=== PATIENT | male | born 1935 | race Native Hawaiian/Other Pacific Islander ===

== ENCOUNTER 2019-02-19 18:30 | Observation (INO) | payer MEDICARE, OTHER ==
[2019-02-19 18:30] VITALS: BMI 21.2
--- NOTE | 2019-02-19 19:32 | C.PDOC ---
History Of Present Illness 84 year old male with PMHx of HTN, Colon CA on 2014 presents to the ED c/o cough and SOB that started approximately one hour ago. Patient reports he woke up from bed and started coughing and feeling SOB. Patient states feeling come chest discomfort when coughing. Patient denies fever, chills, headache, palpitations, nausea, vomit, abdominal pain, rash, weakness, numbness, recent travel. Time Seen by Provider: 02/19/19 19:18 Chief Complaint (Nursing): Shortness Of Breath History Per: Patient History/Exam Limitations: no limitations Onset/Duration Of Symptoms: Hrs (1) Current Symptoms Are (Timing): Still Present Initiating Event: Upper Respiratory Illness Quality: "Pain" Exacerbating Factor(s): Coughing Associated Symptoms: Chest Pain Recent travel outside of the [place]: No Additional History Per: Patient, Family Past Medical History Reviewed: Historical Data, Nursing Documentation, Vital Signs Vital Signs: Last Vital Signs Temp 98.5 F 02/19/19 18:34 Pulse 93 H 02/19/19 18:34 Resp 19 02/19/19 18:40 BP 197/101 H 02/19/19 18:34 Pulse Ox 94 L 02/19/19 18:40 Primary Care Provider: Lu Negrete - Medical History PMH: Arthritis, HTN Denies: Chronic Kidney Disease Surgical History: Cholecystectomy Denies: Pacemaker - [facility] Procedures CLOSED ENDOSCOPIC BIOPSY OF LARGE INTESTINE (08/14/14) CORONAR ARTERIOGR-2 CATH (04/10/14) LEFT HEART CARDIAC CATH (04/10/14) LT HEART ANGIOCARDIOGRAM (04/10/14) Family History: States: Unknown Family Hx - Social History Hx Tobacco Use: No Hx Alcohol Use: No Hx Substance Use: No - Immunization History Hx Tetanus Toxoid Vaccination: No Hx Influenza Vaccination: No Hx Pneumococcal Vaccination: No Review Of Systems Constitutional: Negative for: Fever, Chills Cardiovascular: Positive for: Chest Pain. Negative for: Palpitations Respiratory: Positive for: Cough, Shortness of Breath Gastrointestinal: Negative for: Nausea, Vomiting, Abdominal Pain Skin: Negative for: Rash Neurological: Negative for: Weakness, Numbness, Headache, Dizziness Physical Exam - Physical Exam Appears: Non-toxic, No Acute Distress Skin: Normal Color, Warm, Dry, No Rash Head: Atraumatic, Normacephalic Eye(s): bilateral: Normal Inspection Neck: Normal ROM, Supple Chest: Symmetrical Cardiovascular: Rhythm Regular Respiratory: No Rales, Rhonchi (scattered), No Wheezing Gastrointestinal/Abdominal: Soft, No Tenderness, No Distention, Other (LLQ colostomy bag with (+) air and brown stool) Extremity: Capillary Refill (< 2 seconds) Extremity: Bilateral: Atraumatic, Normal Color And Temperature, Normal ROM Pulses: Left Dorsalis Pedis: Normal, Right Dorsalis Pedis: Normal Neurological/Psych: Oriented x3, Normal Speech, Normal Cognition Gait: Unable To Assess ED Course And Treatment - Laboratory Results Result Diagrams: 02/19/19 19:51 02/19/19 19:51 ECG: Interpreted By Me, Viewed By Me ECG Rhythm: Sinus Rhythm, R BBB ECG Interpretation: No Changes From Prior (02/04/18) Interpretation Of ECG: Normal axis. Normal OR. Normal QT. Rate From EC O2 Sat by Pulse Oximetry: 94 - CT Scan/US CTA chest Other Rad Studies (CT/US): Read By Radiologist, Radiology Report Reviewed CT/US Interpretation: CT angiogram of the chest. Clinical statement: Chest pain and shortness of breath. Technique: Multiple axial CT images were obtained from the thoracic inlet through the upper abdomen after a bolus administration of nonionic intravenous contrast. Coronal and sagittal reconstructions were also obtained. Comparison: None. Findings: The pulmonary arteries are well- opacified with contrast, with no intraluminal filling defects to suggest embolism. The thoracic aorta demonstrates mild atherosclerotic changes. Thyroid gland is within normal limits. There is no thoracic lymphadenopathy. There are no pericardial or pleural effusions. The lungs are clear. Limited imaging of the upper abdomen is unremarkable. There are no suspicious osseous lesions. Impression: 1. No evidence of pulmonary embolism. 2. No acute infiltrates or effusions.3. Mild atherosclerotic changes of the thoracic aorta. . Electronically signed on February 19, 2019 10:08:28 PM EDT by: Gregorio Ornelas M.D., M.B.A., Certified By [employer]. Fellowship Trained MRI and CT Specialist. Medical Decision Making Medical Decision Making: Plan: * CT angio chest * EKG * Labs 22:27 - Spoke with Dr. Lu Gilbert, patient's PMD who accepts the patient for admission to her service. Disposition Counseled Patient/Family Regarding: Studies Performed, Diagnosis - Disposition Disposition: HOSPITALIZED Disposition Time: 22:29 Condition: IMPROVED Forms: [employer] (Serbian) - Clinical Impression Clinical Impression: Dyspnea, Hypertension - Scribe Statement The provider has reviewed the documentation as recorded by the Scribe Timbo Martinez All medical record entries made by the Scribe were at my direction and personally dictated by me. I have reviewed the chart and agree that the record accurately reflects my personal performance of the history, physical exam, medical decision making, and the department course for this patient. I have also personally directed, reviewed, and agree with the discharge instructions and disposition.
[2019-02-19 19:55] LABS: BASO % 0.2 % (0.0-2.0); EOS # 0.2 K/uL (0.0-0.7); EOS % 4.2 % (0.0-4.0); HEMOGLOBIN 13.9 g/dL (12.0-18.0); LYMPH # 0.8 K/uL (1.0-4.3); LYMPH % 19.9 % (20.0-40.0); MEAN CELL VOLUME 98.1 fL (80.0-94.0); MEAN CORPUSCULAR HEMOGLOBIN 33.1 pg (27.0-31.0); MEAN CORPUSCULAR HGB CONC 33.7 g/dL (33.0-37.0); MEAN PLATELET VOLUME 7.5 fL (7.2-11.7); MONO # 0.4 K/uL (0.0-0.8); MONO % 11.2 % (0.0-10.0); NEUT # 2.6 K/uL (1.8-7.0); NEUT % 64.5 % (50.0-75.0); RBC 4.19 Mil/uL (4.40-5.90)
[2019-02-19 20:03] LABS: INR 1.1; PARTIAL THROMBOPLASTIN TIME 34.9 SECONDS (21-34); PROTHROMBIN TIME 12.1 SECONDS (9.7-12.2)
[2019-02-19 20:56] LABS: ALB/GLOB RATIO 1.2 (1.0-2.1); ALBUMIN 4.1 g/dL (3.5-5.0); ALT/SGPT 18 U/L (21-72); AST/SGOT 24 U/L (17-59); BLOOD UREA NITROGEN 20 mg/dL (9-20); GFR NON-AFRICAN AMERICAN > 60
[2019-02-19 21:08] LABS: B-TYPE NATRIURETIC PEPTIDE 241 pg/mL (0-900)
[2019-02-19] MEDS ORDERED: Iodixanol 320 MG/ML 100 ML BOTTLE IV ONE (21:59)
[2019-02-20] MEDS ORDERED: Promethazine 6.25 MG/5 ML CUP PO PRN (01:06)
[2019-02-20 01:20] VITALS: RESP 20
[2019-02-20 04:41] LABS: BLOOD UREA NITROGEN 17 mg/dL (9-20); CALCIUM 9.1 mg/dl (8.6-10.4); GFR NON-AFRICAN AMERICAN > 60
[2019-02-20 04:50] LABS: CK-MB 3.43 ng/mL (0.0-3.38)
--- NOTE | 2019-02-20 08:28 | CT ---
Date of service: 02/19/2019 PROCEDURE: CT Chest with contrast (Pulmonary Angiogram) HISTORY: Shortness of breath COMPARISON: 02/04/2018 TECHNIQUE: Axial computed tomography images were obtained of the chest in the pulmonary arterial phase of enhancement. Coronal and sagittal reformatted images were created and reviewed. Sagittal and coronal MIPS reformatted images were obtained. Radiation dose: Total exam DLP = 218.02 mGy-cm. This CT exam was performed using one or more of the following dose reduction techniques: Automated exposure control, adjustment of the mA and/or kV according to patient size, and/or use of iterative reconstruction technique. FINDINGS: PULMONARY ARTERIES: No evidence of acute central pulmonary embolism. More limited evaluation of the segmental and subsegmental branches. For example some motion artifact limits evaluation of segmental and subsegmental branches in the left lower lobe pulmonary arteries. AORTA: Prominent atherosclerotic calcification and plaque within the visualized aorta. Mild prominence of the ascending aorta measuring up to 3.7 centimeters. LUNGS: Right lung: Emphysematous changes. Mild atelectasis within the medial right middle lobe. Left lung: Emphysematous changes. Mild atelectasis within the left lower lobe. PLEURAL SPACES: Unremarkable. No effusion or pneumothorax. HEART: Unremarkable. No cardiomegaly. No significant pericardial effusion. LYMPH NODES: No lymphadenopathy. BONES, CHEST WALL: Degenerative changes in the spine. OTHER FINDINGS: Surgical clips in the right upper quadrant. Nodular thickening of the adrenal glands. Small hiatal hernia. 4 millimeter exophytic hyperdense foci/lesion seen within the midpole of the left kidney, too small to adequately characterize. This may be better evaluated with renal ultrasound if clinically indicated. IMPRESSION: No acute central pulmonary embolism. Additional findings as above. A preliminary report was generated at 10:08 p.m. on 02/19/[address] Gregorio Ornelas from [employer].
[2019-02-20 08:39] VITALS: BP 122/64; TEMP 97.9
[2019-02-20] MEDS ORDERED: Ergocalciferol 50,000 Intl Units Cap PO SCH (10:00)
[2019-02-20] MEDS ORDERED: Metoprolol Succinate 25 mg XL Tab PO SCH (10:00)
[2019-02-20 12:20] VITALS: PULSE 62
--- NOTE | 2019-02-20 12:53 | CP.PCM.HP ---
History of Present Illness - History of Present Illness History of Present Illness: This is an 84 y/o male with known history of hypertension, S/P Colostomy for Ca of the rectum, admitted because of shortness of breath. He claims that he worked in the yard and later that day he developed cough and difficulty breathing and hence he was brought to the ER. He was found to have a markedly elevated BP of 190/101. He denies any sneezing, or wheezing, no runnynose, fever or headache. He was subsequently admitted for further observation and treatment. Present on Admission - Present on Admission Any Indicators Present on Admission: No Review of Systems - Constitutional Constitutional: As Per HPI - EENT Eyes: As Per HPI Ears: As Per HPI Nose/Mouth/Throat: As Per HPI - Cardiovascular Cardiovascular: Dyspnea - Respiratory Respiratory: Cough, Dyspnea - Gastrointestinal Gastrointestinal: As Per HPI - Psychiatric Psychiatric: As Per HPI - Endocrine Endocrine: As Per HPI Past Patient History - Infectious Disease Hx of Infectious Diseases: None - Past Medical History & Family History Past Medical History?: Yes - Past Social History Smoking Status: Never Smoked Chewing Tobacco Use: No Alcohol: None Drugs: Denies - CARDIAC Hx Hypertension: Yes Hx Pacemaker: No - PULMONARY Hx Respiratory Disorders: No - NEUROLOGICAL Hx Neurological Disorder: No Hx Paralysis: No - HEENT Hx HEENT Problems: No - RENAL Hx Chronic Kidney Disease: No - ENDOCRINE/METABOLIC Hx Endocrine Disorders: No - HEMATOLOGICAL/ONCOLOGICAL Hx Blood Disorders: Yes Hx Blood Transfusions: No Hx Blood Transfusion Reaction: No Hx Cancer: Yes (ON CHEMO AND RADIATION APR 2014) Hx Chemotherapy: Yes - INTEGUMENTARY Hx Dermatological Problems: No - MUSCULOSKELETAL/RHEUMATOLOGICAL Hx Arthritis: Yes - GASTROINTESTINAL Hx Gastrointestinal Disorders: Yes (colorectal cancer) Hx Bowel Surgery: Yes - GENITOURINARY/GYNECOLOGICAL Hx Genitourinary Disorders: Yes Hx Prostate Problems: Yes (BPH) - PSYCHIATRIC Hx Substance Use: No - SURGICAL HISTORY Hx Cholecystectomy: Yes - ANESTHESIA Hx Anesthesia: Yes Hx Anesthesia Reactions: No Hx Malignant Hyperthermia: No Meds Allergies/Adverse Reactions: Allergies Allergy/AdvReac Type Severity Reaction Status Date / Time No Known Allergies Allergy Verified 02/04/18 04:40 Physical Exam - Constitutional Appears: No Acute Distress - Head Exam Head Exam: NORMAL INSPECTION - Eye Exam Eye Exam: Normal appearance - ENT Exam ENT Exam: Normal Exam - Neck Exam Neck exam: Positive for: Normal Inspection - Respiratory Exam Respiratory Exam: Clear to Auscultation Bilateral, NORMAL BREATHING PATTERN - Cardiovascular Exam Cardiovascular Exam: REGULAR RHYTHM, +S1, +S2 - GI/Abdominal Exam GI & Abdominal Exam: Normal Bowel Sounds, Soft - Extremities Exam Extremities exam: Positive for: normal inspection - Neurological Exam Neurological exam: Alert, Oriented x3 - Psychiatric Exam Psychiatric exam: Normal Affect, Normal Mood Results - Vital Signs Recent Vital Signs: Last Vital Signs Temp 97.9 F 02/20/19 08:00 Pulse 62 02/20/19 12:20 Resp 20 02/20/19 08:00 BP 122/64 02/20/19 08:00 Pulse Ox 96 02/20/19 12:20 - Labs Result Diagrams: 02/19/19 19:51 02/20/19 04:21 Labs: Laboratory Results - last 24 hr 02/19/19 02/19/19 02/19/19 19:51 19:51 19:51 WBC 4.0 L RBC 4.19 L Hgb 13.9 Hct 41.1 MCV 98.1 H MCH 33.1 H MCHC 33.7 RDW 14.0 Plt Count 189 MPV 7.5 Neut % (Auto) 64.5 Lymph % (Auto) 19.9 L [place] % (Auto) 11.2 H Eos % (Auto) 4.2 H Baso % (Auto) 0.2 Neut # (Auto) 2.6 Lymph # (Auto) 0.8 L [place] # (Auto) 0.4 Eos # (Auto) 0.2 Baso # (Auto) 0.0 PT 12.1 INR 1.1 APTT 34.9 H Sodium 138 Potassium 4.0 Chloride 104 Carbon Dioxide 27 Anion Gap 12 BUN 20 Creatinine 1.0 Est GFR ( Amer) > 60 Est GFR (Non-Af Amer) > 60 Random Glucose 124 H D Calcium 9.0 Magnesium 1.9 Total Bilirubin 0.5 AST 24 ALT 18 L D Alkaline Phosphatase 76 Total Creatine Kinase CK-MB (Mass) Troponin I 0.0240 NT-Pro-B Natriuret Pep 241 Total Protein 7.4 Albumin 4.1 Globulin 3.3 Albumin/Globulin Ratio 1.2 02/20/19 04:21 WBC RBC Hgb Hct MCV MCH MCHC RDW Plt Count MPV Neut % (Auto) Lymph % (Auto) [place] % (Auto) Eos % (Auto) Baso % (Auto) Neut # (Auto) Lymph # (Auto) [place] # (Auto) Eos # (Auto) Baso # (Auto) PT INR APTT Sodium 139 Potassium 4.1 Chloride 106 Carbon Dioxide 29 Anion Gap 9 L BUN 17 Creatinine 1.0 Est GFR ( Amer) > 60 Est GFR (Non-Af Amer) > 60 Random Glucose 110 Calcium 9.1 Magnesium Total Bilirubin AST ALT Alkaline Phosphatase Total Creatine Kinase 80 CK-MB (Mass) 3.43 H Troponin I 0.0290 NT-Pro-B Natriuret Pep Total Protein Albumin Globulin Albumin/Globulin Ratio Assessment & Plan - Assessment and Plan (Free Text) Assessment: 84 y/o male admitted with history of cough and shortness of breath associated with markedly elevated BP. R/O acute ischemic event vs SOB due to accelerated BP Will check BRET and echo and start on BP meds to lower BP. Decision To Admit - Pt Status Changed To: Hospital Disposition Of: Observation - . Bed Request Type: Telemetry Admitting Physician: Lu Negrete
--- NOTE | 2019-02-20 13:01 | CP.PCM.DIS ---
Provider - Provider Date of Admission: 02/19/19 22:30 Attending physician: Lu Negrete MD Primary care physician: Vega Negrete Time Spent in preparation of Discharge (in minutes): 30 Diagnosis - Discharge Diagnosis (1) Malignant hypertension requiring acute intensive management Status: Resolved (2) Dyspnea Status: Resolved Hospital Course - Lab Results Lab Results: Most Recent Lab Values WBC 4.0 K/uL (4.8-10.8) L 02/19/19 19:51 RBC 4.19 Mil/uL (4.40-5.90) L 02/19/19 19:51 Hgb 13.9 g/dL (12.0-18.0) 02/19/19 19:51 Hct 41.1 % (35.0-51.0) 02/19/19 19:51 MCV 98.1 fL (80.0-94.0) H 02/19/19 19:51 MCH 33.1 pg (27.0-31.0) H 02/19/19 19:51 MCHC 33.7 g/dL (33.0-37.0) 02/19/19 19:51 RDW 14.0 % (11.5-14.5) 02/19/19 19:51 Plt Count 189 K/uL (130-400) 02/19/19 19:51 MPV 7.5 fL (7.2-11.7) 02/19/19 19:51 Neut % (Auto) 64.5 % (50.0-75.0) 02/19/19 19:51 Lymph % (Auto) 19.9 % (20.0-40.0) L 02/19/19 19:51 [place] % (Auto) 11.2 % (0.0-10.0) H 02/19/19 19:51 Eos % (Auto) 4.2 % (0.0-4.0) H 02/19/19 19:51 Baso % (Auto) 0.2 % (0.0-2.0) 02/19/19 19:51 Neut # (Auto) 2.6 K/uL (1.8-7.0) 02/19/19 19:51 Lymph # (Auto) 0.8 K/uL (1.0-4.3) L 02/19/19 19:51 [place] # (Auto) 0.4 K/uL (0.0-0.8) 02/19/19 19:51 Eos # (Auto) 0.2 K/uL (0.0-0.7) 02/19/19 19:51 Baso # (Auto) 0.0 K/uL (0.0-0.2) 02/19/19 19:51 PT 12.1 SECONDS (9.7-12.2) 02/19/19 19:51 INR 1.1 02/19/19 19:51 APTT 34.9 SECONDS (21-34) H 02/19/19 19:51 Sodium 139 mmol/L (132-148) 02/20/19 04:21 Potassium 4.1 mmol/L (3.6-5.2) 02/20/19 04:21 Chloride 106 mmol/L (98-107) 02/20/19 04:21 Carbon Dioxide 29 mmol/L (22-30) 02/20/19 04:21 Anion Gap 9 (10-20) L 02/20/19 04:21 BUN 17 mg/dL (9-20) 02/20/19 04:21 Creatinine 1.0 mg/dL (0.8-1.5) 02/20/19 04:21 Est GFR ( Amer) > 60 02/20/19 04:21 Est GFR (Non-Af Amer) > 60 02/20/19 04:21 Random Glucose 110 mg/dL (75-110) 02/20/19 04:21 Calcium 9.1 mg/dl (8.6-10.4) 02/20/19 04:21 Magnesium 1.9 mg/dL (1.6-2.3) 02/19/19 19:51 Total Bilirubin 0.5 mg/dL (0.2-1.3) 02/19/19 19:51 AST 24 U/L (17-59) 02/19/19 19:51 ALT 18 U/L (21-72) L D 02/19/19 19:51 Alkaline Phosphatase 76 U/L (38-126) 02/19/19 19:51 Total Creatine Kinase 80 U/L (55-170) 02/20/19 04:21 CK-MB (Mass) 3.43 ng/mL (0.0-3.38) H 02/20/19 04:21 Troponin I 0.0290 ng/mL (0.00-0.120) 02/20/19 04:21 NT-Pro-B Natriuret Pep 241 pg/mL (0-900) 02/19/19 19:51 Total Protein 7.4 g/dL (6.3-8.3) 02/19/19 19:51 Albumin 4.1 g/dL (3.5-5.0) 02/19/19 19:51 Globulin 3.3 gm/dL (2.2-3.9) 02/19/19 19:51 Albumin/Globulin Ratio 1.2 (1.0-2.1) 02/19/19 19:51 - Hospital Course Hospital Course: Patient was admitted with markedly elevated BP, and low O2 sat. he was sent for CT scan of the chest to r/o Pulmonary embolism which was ruled out. he had seerial BRET that r/o acute ischemic event. Echoardiogram done and found to have normal LV wall motion and EF. BP is much improved on current meds and will be discharged today to be followed up in the office this week or next wek. Continue same meds. Advised low salt diet. Discharge Exam - Head Exam Head Exam: NORMAL INSPECTION - Eye Exam Eye Exam: Normal appearance - ENT Exam ENT Exam: Normal Exam - Neck Exam Neck exam: Normal Inspection - Respiratory Exam Respiratory Exam: Clear to PA & Lateral, NORMAL BREATHING PATTERN - Cardiovascular Exam Cardiovascular Exam: REGULAR RHYTHM, +S1, +S2 - GI/Abdominal Exam GI & Abdominal Exam: Normal Bowel Sounds, Soft Additional comments: + colostomy bag - Extremities Exam Extremities exam: normal inspection - Neurological Exam Neurological exam: Alert, Oriented x3 - Psychiatric Exam Psychiatric exam: Normal Affect, Normal Mood - Skin Skin Exam: Dry, Intact, Normal Color, Warm Discharge Plan - Follow Up Plan Condition: IMPROVED Disposition: HOME/ ROUTINE
[2019-02-20 13:26] LABS: CK-MB 3.06 ng/mL (0.0-3.38); TROPONIN I 0.02 ng/mL (0.00-0.120)
[2019-02-20 14:42] VITALS: O2SAT 98
--- NOTE | 2019-02-20 19:24 | CARD ---
APPROVED REPORT Date of service: 02/20/2019 EXAM: Two-dimensional and M-mode echocardiogram with Doppler and color Doppler. INDICATION Dyspnea telemetry adm, colon ca RISK FACTORS Hypertension 2D DIMENSIONS IVSd1.1 (0.7-1.1cm)LVDd4.9 (3.9-5.9cm) PWd0.8 (0.7-1.1cm)LA [id number] (18-58mL) LVDs1.8 (2.5-4.0cm)FS (%) 62.4 % LVEF (%)90.9 (>50%)LVEF (Solorzano's)82.56 % IVC0.00 cm M-Mode DIMENSIONS RVDd1.98 (2.1-3.2cm)Left Atrium (MM)4.84 (2.5-4.0cm) IVSd1.18 (0.7-1.1cm)Aortic Root3.27 (2.2-3.7cm) LVDd4.78 (4.0-5.6cm)Aortic Cusp Exc.2.05 (1.5-2.0cm) PWd1.04 (0.7-1.1cm)FS (%) 51 % LVDs2.34 (2.0-3.8cm)LVEF (%)82 (>50%) Aortic Valve AI P 1/2 [id number] Mitral Valve MV E Mhtzrhyy18.2cm/sMV A Eouzqaif285.4cm/sE/A ratio0.7 TDI Lateral E' Peak V5.13cm/sMedial E' Peak V5.64cm/sE/Lateral E'15.8 E/Medial E'14.4 Tricuspid Valve TR Peak [id number]/sTR Peak Gr.[id number] LEFT VENTRICLE The left ventricle is normal size. There is normal left ventricular wall thickness. The left ventricular function is normal. The left ventricular ejection fraction is within the normal range. There is normal LV segmental wall motion. Transmitral Doppler flow pattern is Grade I-abnormal relaxation pattern. RIGHT VENTRICLE The right ventricle is normal size. There is normal right ventricular wall thickness. The right ventricular systolic function is normal. ATRIA The left atrium size is normal. The right atrium size is normal. AORTIC VALVE The aortic valve is moderately thickened. There is mild aortic regurgitation. There is no aortic valvular stenosis. MITRAL VALVE The mitral valve is moderately thickened. There is no mitral valve stenosis. There is no mitral valve regurgitation noted. TRICUSPID VALVE There is trace tricuspid regurgitation. GREAT VESSELS The aortic root is normal in size. The IVC is normal in size and collapses >50% with inspiration. PERICARDIAL EFFUSION There is no pericardial effusion. <Conclusion> There is normal left ventricular wall thickness. The left ventricular function is normal. The left ventricular ejection fraction is within the normal range. There is normal LV segmental wall motion. Transmitral Doppler flow pattern is Grade I-abnormal relaxation pattern. There is mild aortic regurgitation.
--- NOTE | 2019-02-20 20:38 | CARD ---
APPROVED REPORT Date of service: 02/19/2019 EKG Measurement Heart [id number] <Conclusion> Normal sinus rhythm Right bundle branch block Inferior infarct, age undetermined T wave abnormality, consider lateral ischemia Abnormal ECG
== END 2019-02-20 14:40 | disposition home or self-care (01) ==
LOC: C.ER 18:30 → C.5S 22:30
PROVIDERS: ADMIT Internal Medicine Cardiovascular Disease; ATTEND Internal Medicine Cardiovascular Disease
DX: I10 Essential (primary) hypertension (principal); Z93.3 Colostomy status; Z85.048 Personal history of other malignant neoplasm of rectum, rectosigmoid junction, and anus; R06.02 Shortness of breath
CPT/HCPCS: 36415; 71275; 80048; 80053; 83735; 83880; 84484; 85025; 85610; 85730; 93005; 93306; 97110; 97162; 99285; G0378; G8978; G8979; G8980; Q9967